=== PATIENT | male | born 1960 | race Caucasian/White ===

== ENCOUNTER → 2018-06-24 | Outpatient (CLI) | payer OTHER ==
--- NOTE | 2018-06-24 09:45 | Diagnostic Imaging Report ---
EXAM: US THYROID DATE: 06/24/2018 8:19 AM INDICATION: Right thyroid nodule COMPARISON: None FINDINGS: Grayscale and color flow Doppler ultrasound of the thyroid was performed. Right thyroid: 4.4 x 1.4 x 1.8 cm. Homogeneous echotexture. Normal color flow vascularity. Nodules: Mid thyroid: 1.1 x 0.6 x 0.7 cm. Solid, hypoechoic, wider than tall, ill-defined margins, macrocalcification. TR4b. Left thyroid: 4.7 x 1.2 x 1.3 cm. Homogeneous echotexture. Normal color flow vascularity. Nodules: Upper pole: 0.4 x 0.2 x 0.5 cm. Solid, hypoechoic, wider than tall, ill-defined margins, no calcifications. TR4a. Lower pole: 0.4 x 0.2 x 0.3 cm. Solid, hypoechoic, wider than tall, ill-defined margins, no calcifications. TR4a. Lower pole: 0.5 x 0.3 x 0.4 cm. Solid, hypoechoic, wider than tall, ill-defined margins, no calcifications. TR4a. Isthmus: 0.4 cm thickness, no nodules. IMPRESSION: Right thyroid nodule meets ACR criteria for follow-up. Recommend repeat thyroid ultrasound in one year to assure stability. ACR TI-RADS Lexicon: TR1, Benign: No FNA TR2, Not Suspicious: No FNA. TR3a (<1.5 cm): No follow-up. TR3b (1.5-2.5 cm), Mildly Suspicious: Follow at 1, 3, 5 years. TR3c (>2.5 cm), Mildly Suspicious: FNA. TR4a (<1.0 cm): No follow-up. TR4b (1.0-1.5 cm), Moderately Suspicious: Follow at 1, 2, 3, 5 years. TR4c (>1.5 cm), Moderately Suspicious: FNA. TR5a (<0.5 cm): No follow-up. TR5b (0.5-1.0 cm), Highly Suspicious: Follow at 1, 2, 3, 4, 5 years. TR5c (>1.0 cm), Highly Suspicious: FNA. Literature: ACR Thyroid Imaging, Reporting and Data System (TI-RADS): White Paper of the ACR TI-RADS Committee. J Am Shameka Radiol 2017. Signed by: Dr. Sterling Bland M.D. on 06/24/2018 9:42 AM
--- NOTE | 2018-06-24 14:35 | Diagnostic Imaging Report ---
Exam: Fine-needle aspiration of a right thyroid nodule. History: Patient with a previously diagnosed nodule that is classified as a TR 4. Biopsy is requested by the patient's ENT surgeon. Comparison: Prior chest CT 2017 and ultrasound thyroid 06/24/2018 Findings: Following informed consent and sterile preparation of the right neck was accomplished with full barrier sterile technique. Local anesthesia obtained with 1% Xylocaine. A total of 5 FNA's utilizing 26-gauge needles were performed and stored to the medical record. Specimens were evaluated by the pathologist who was in attendance. She deems the specimens adequate. Patient tolerated the procedure well. Impression: Successful fine needle aspiration of a right thyroid nodule. Signed by: Dr. Cory Bethea DO on 06/24/2018 2:31 PM
== END ==
LOC: US 08:07
PROVIDERS: ATTEND Otolaryngology
DX: E04.1 Nontoxic single thyroid nodule (principal)
CPT/HCPCS: 10007; 76536; 88172; 88173; 88305